=== PATIENT | male | born 1980 | race Caucasian/White ===

== ENCOUNTER 2022-09-13 22:36 | Emergency (ER) | payer BC, OTHER ==
[2022-09-13 22:44] VITALS: BP 142/92; PULSE 75; RESP 18; TEMP 98.3; BMI 35.9
[2022-09-14] MEDS ORDERED: ACETAMINOPHEN 500 MG TABLET (FP) PO ONE (00:18)
[2022-09-14] MEDS ORDERED: KETOROLAC TROMETHAMINE 30 MG/1 ML VIAL IM ONE (00:18)
[2022-09-14] MEDS ORDERED: LIDOCAINE 5% TOPICAL PATCH TP ONE (00:18)
[2022-09-14] MEDS ORDERED: KETOROLAC TROMETHAMINE 30 MG/1 ML VIAL ONE (00:26)
[2022-09-14] MEDS ORDERED: LIDOCAINE 5% TOPICAL PATCH ONE (00:26)
[2022-09-14] MEDS ORDERED: ACETAMINOPHEN 500 MG TABLET (FP) ONE (00:26)
[2022-09-14] MEDS ORDERED: LIDOCAINE PATCH REMOVAL MC SCH (22:00)
== END 2022-09-14 00:55 | disposition home or self-care (01) ==
LOC: JER 22:36 → JERFT 22:36
PROC: 3E0233Z Introduction of Anti-inflammatory into Muscle, Percutaneous Approach (ICD-10-PCS; principal; 2022-09-14)
DX: M54.2 Cervicalgia (principal); G24.3 Spasmodic torticollis
CPT/HCPCS: 99284-25

== ENCOUNTER → 2023-10-14 | Day surgery (SDC) | payer BC ==
[~2023-10-14] MED LIST: ACETAMINOPHEN 500 MG TABLET (FP) PO PRN; DEXAMETHASONE SOD PHOSPHATE 10 MG/1 ML VIAL ONE; LIDOCAINE HCL/PF 1% SDV 5ML VIAL ONE
== END | disposition home or self-care (01) ==
LOC: JASU-SURG 04:24
PROVIDERS: ATTEND Pain Medicine Pain Medicine
DX: Z53.8 Procedure and treatment not carried out for other reasons (principal)
CPT/HCPCS: J1100